=== PATIENT | male | born 1980 | race Caucasian/White ===

== ENCOUNTER 2022-02-21 10:20 | Emergency (ER) | payer OTHER ==
[2022-02-21] MEDS ORDERED: ENDOCET 5-3251 EACH PO (13:25)
== END 2022-02-21 14:02 | disposition home or self-care (01) ==
LOC: ER1 10:20
DX: S82.832A Other fracture of upper and lower end of left fibula, initial encounter for closed fracture (principal); S82.431A Displaced oblique fracture of shaft of right fibula, initial encounter for closed fracture; S00.83XA Contusion of other part of head, initial encounter; M25.512 Pain in left shoulder; M54.50 Low back pain, unspecified; I10 Essential (primary) hypertension; W01.10XA Fall on same level from slipping, tripping and stumbling with subsequent striking against unspecified object, initial encounter
CPT/HCPCS: 70450; 72128; 72131; 73030; 73610; 96372; 99284; J1885

== ENCOUNTER → 2022-04-02 | Outpatient (CLI) | payer OTHER ==
[~2022-04-02] MED LIST: ENDOCET 5-3251 EACH PO
== END ==
LOC: KOH-I 14:57
DX: S82.831A Other fracture of upper and lower end of right fibula, initial encounter for closed fracture (principal)
CPT/HCPCS: 73610